=== PATIENT | male | born 1955 | race Asian ===

== ENCOUNTER → 2017-05-22 | Outpatient (CLI) | payer OTHER | LOC: CIMAGING 07:03 | PROVIDERS: ATTEND Internal Medicine | DX: B18.1 Chronic viral hepatitis B without delta-agent (principal); N28.1 Cyst of kidney, acquired | CPT/HCPCS: 76705-PO ==

== ENCOUNTER → 2018-01-22 | Outpatient (CLI) | payer OTHER | LOC: CIMAGING 08:49 | PROVIDERS: ATTEND Family Medicine | DX: N28.1 Cyst of kidney, acquired (principal); B18.1 Chronic viral hepatitis B without delta-agent | CPT/HCPCS: 76705-PO ==

== ENCOUNTER → 2019-03-07 | Outpatient (CLI) | payer OTHER | LOC: BRMIMAGING 08:24 | PROVIDERS: ATTEND Internal Medicine | DX: B18.1 Chronic viral hepatitis B without delta-agent (principal) | CPT/HCPCS: 76705-PO ==